=== PATIENT | male | born 1935 | race Caucasian/White ===

== ENCOUNTER 2018-08-07 18:36 | Inpatient (IN) | payer MEDICARE, OTHER ==
[2018-08-07 18:57] VITALS: BMI 20.9
[2018-08-07] MEDS ORDERED: Diabetic Tussin 200 MG/10 ML UDCUP PO PRN (22:21)
[2018-08-07] MEDS ORDERED: cloNIDine 0.1 MG TAB PO PRN (22:21)
[2018-08-07] MEDS ORDERED: hydrALAZINE 20 MG/ML VIAL SLOW IVP PRN (22:21)
[2018-08-07] MEDS ORDERED: Senokot S 8.6-50 MG TAB PO PRN ×2 (22:21)
[2018-08-07] MEDS ORDERED: Ondansetron PF 4 MG/2 ML Vial IVP PRN (22:21)
[2018-08-07] MEDS ORDERED: Bisacodyl 5 MG TAB PO PRN ×2 (22:21)
[2018-08-07] MEDS ORDERED: Nitroglycerin 0.4 MG TAB (25 Tab Bottle) SL PRN (22:21)
[2018-08-07] MEDS ORDERED: Benzonatate 100 MG CAP PO PRN (22:21)
[2018-08-07] MEDS ORDERED: Bisacodyl 10 MG SUPP PR PRN (22:21)
[2018-08-07] MEDS ORDERED: Acetaminophen 325 MG TAB PO PRN (22:21)
[2018-08-07] MEDS ORDERED: Calcium Carbonate 500 MG ChewTAB PO PRN (22:21)
[2018-08-07] MEDS ORDERED: HYDROcodone/Acetaminophen 10/325 mg Tablet PO PRN (22:25)
[2018-08-07] MEDS ORDERED: Cepastat Lozenges 1 LOZ PO PRN (22:25)
[2018-08-07] MEDS ORDERED: Dextrose 50% Abboject 50 ML SYRINGE SLOW IVP PRN (22:30)
[2018-08-07] MEDS ORDERED: HumaLOG 300 UNITS/3 ML VIAL SC PRN (22:30)
[2018-08-07] MEDS ORDERED: Dextrose 5% in Water 1,000 ML IV PRN (22:30)
[2018-08-07 23:30] LABS: Anisocytosis SLIGHT = 6-15 cells (100X) (0-5/hpf); Band 31 % (5-11); Lymphocytes 10 % (21-51); MDiff Complete? YES; Mean Corpuscular HGB CONC 34.7 g/dL (32.0-36.0); Mean Corpuscular Hemoglobin 36.9 pg (27.0-31.0); Monocytes 3 % (0-10); Neutrophil 56 % (42-75); PLT Morphology Comment Appears Decreased; Platelet Count 82 thou/uL (130-400); RBC Distribution Width 15.4 % (11.5-14.5); White Blood Cell (WBC) Count 5.4 thou/uL (4.8-10.8)
[2018-08-07 23:37] LABS: ALT (SGPT) 30 U/L (8-55); AST (SGOT) 29 U/L (5-34); Albumin 3.5 g/dL (3.4-4.8); Alkaline Phosphatase 90 U/L (40-150); Anion Gap 15 mmol/L (10-20); BUN (Urea Nitrogen) 18 mg/dL (8.4-25.7); Bilirubin, Total 0.8 mg/dL (0.2-1.2); Calc. Creatinine Clearance 48 mL/min (70-130); Calcium 9.2 mg/dL (7.8-10.44); Carbon Dioxide 23 mmol/L (23-31); Chloride 101 mmol/L (98-107); Estimated GFR-MDRD 66; Globulin 3.2 g/dL (2.4-3.5); Glucose 235 mg/dL (83-110); Potassium 4.5 mmol/L (3.5-5.1); Protein, Total 6.7 g/dL (5.8-8.1); Sodium 134 mmol/L (136-145)
[2018-08-08] MEDS: Sodium Chloride 0.9% 1,000 ML IV SCH ×2 (03:02→20:31)
[2018-08-08] MEDS: Vancomycin HCl 1.25 GM in Sodium Chloride 0.9% 250 ML 250 ML IVPB SCH (04:30)
--- NOTE | 2018-08-08 05:16 | HP ---
The patient was seen prior to midnight. PRIMARY CARE PHYSICIAN: Dr. David Nicolas. HISTORY OF PRESENTING ILLNESS: Mr. Man is an 83-year-old male, who was admitted as a direct admit from some outside emergency room, reportedly in [place], [place] for complaints of altered mental status and fever. History is mainly obtained by the patient's and daughter present in the room. Medical records sent over by [facility] are evaluated extensively. He was found to have high-grade bilateral carotid arterial stenosis and underwent carotid endarterectomy on the left side during his hospitalization in [facility]. After that, he was discharged home and did fairly well up until yesterday afternoon when he started to feel lethargic and started to have fever with chills. He had been complaining of sore throat to his . Other than that, denies any significant muscle weakness, but he was, in general, very weak. He did not have any nausea, vomiting, or diarrhea. He did not have any chest pain or shortness of breath or urinary frequency or urgency or dysuria. According to the family, Mr. Man was recently admitted in [facility] for complaints of sudden onset of lower extremity weakness and was diagnosed with having a TIA. He was discharged on aspirin after a thorough evaluation, reportedly an MRI done at that time was negative. He was brought into the emergency room in [place], [place], where he underwent blood work and chest x-ray. Upon evaluation of the ER records from [place], [place], he had a fever of 102.6 with a pulse of 113, respirations 22, and blood pressure 143/77 with oxygen saturation 93% on room air. The patient did have complaint of some wheezing as well as productive wet cough for the last day or two. CBC done at [facility] had a normal white blood cell count of 6.58. His platelet count was found to be low at 90 and influenza A and B were negative. Chest x-ray showed no acute disease, and his CMP was essentially unremarkable. He was given Xopenex and Atrovent nebulizer that did help a little bit and he was given Tylenol as well as normal saline. His cardiovascular surgeon, Dr. Prado, was contacted by the ER physician, who did the procedure 6 days ago, and Dr. Mazariegos also was consulted, who was somehow involved in his care in [place], [place]. Reportedly, they did not feel that his current symptoms were because of the surgery. Our hospital was contacted, and he was sent over here for further evaluation and higher level of care. I have also reviewed the results from his hospitalization in [place], [place]. An MRI of the brain without contrast done over there showed no acute infarct, only chronic small-vessel ischemic changes. He also had a CT angio done at [place], [place], which showed high-grade stenosis bilaterally. Upon my evaluation, it seems like the patient might have contracted health-care associated pneumonia with high-grade fever, cough, and wheezing. He will be admitted and treated for the same. PAST MEDICAL HISTORY: 1. History of recent TIA 1 week ago. 2. History of bilateral carotid arterial stenosis, status post left carotid endarterectomy 6 days ago. 3. Type 2 diabetes. 4. History of DVT, status post 6 months' treatment with Eliquis from August to February 2018. 5. History of epistaxis with Eliquis. 6. Peripheral arterial disease. PAST SURGICAL HISTORY: 1. Carotid endarterectomy 6 days ago. 2. Bilateral femoral artery stenting. ALLERGIES: NO KNOWN MEDICATION ALLERGIES. CURRENT MEDICATIONS: 1. Metformin 1000 mg daily. 2. Aspirin 81 mg daily. 3. Atorvastatin 40 mg daily. 4. Prilosec 20 mg daily. 5. [place] p.r.n. 6. Androgen patch 4 mg every 24 hours. SOCIAL HISTORY: He is and lives at home with his family. He is a barlow by profession. Has no history of drug, tobacco, or alcohol abuse. 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 He has no disability. FAMILY HISTORY: Mother had diabetes. Father had coronary artery disease and ME. CODE STATUS: Full code. Discussed with the patient and his . REVIEW OF SYSTEMS: It is limited at this time as the patient is somewhat lethargic. His biggest complaint at this time is generalized weakness. Otherwise, a 12-point review of systems is negative except for those mentioned in history and physical. LABORATORY EXAMINATION: Labs were repeated in our facility. It shows WBCs of 5.4 with 56% neutrophils and 31% bands, hemoglobin is 10 with hematocrit of 28.7, it is macrocytic in nature. Platelet count of 82. Serum chemistry showed sodium of 134, blood sugar 235. Troponin less than 0.010. Liver enzymes unremarkable. Total protein 6.7 with 3.5 of albumin. Urinalysis and chest x-ray are pending at this time, but the chest x-ray done in [place], [place] is negative for any infiltrate, but it was a suboptimal study as well. PHYSICAL EXAMINATION: VITAL SIGNS: Most recent vital signs; blood pressure 142/87, respirations 20, saturating 94% on room air, pulse 72, temperature 98.1. GENERAL: He is lethargic and somnolent, but in no acute distress. Audible wheezes are heard. He does have that rattling sound when he breathes in, otherwise in no acute distress. HEENT: Mucous membrane is slightly dry. No oropharyngeal exudate or erythema. Head is normocephalic, atraumatic. Pupils equal, reactive to light and accommodation. Extraocular movement intact. NECK: His surgical scar is well healing on the left carotid artery with mild swelling without any erythema or drainage. CHEST: Shows expiratory wheezes bilaterally, mainly in the upper lobes. Rate and rhythm is regular without any murmurs, rubs, or gallops. ABDOMEN: Soft, nontender, nondistended. Positive bowel sounds. EXTREMITIES: Free of any cyanosis, clubbing, or edema. NEUROLOGICAL: Nonfocal. SKIN: Free of any rashes or bruises. Feels warm and dry to touch. PSYCHIATRIC: Normal affect. IMPRESSION AND PLAN: 1. Sepsis: Given the fever and recent hospitalization and his cough, healthcare-associated pneumonia is suspected with sepsis. He has bandemia, fever, and tachycardia at the presenting emergency room. He will be started on gentle IV fluid hydration with broad-spectrum IV antibiotics, and we will obtain urine culture and blood culture, repeat chest x-ray in the morning as well. His symptoms have currently improved somewhat. He will be treated with cefepime and vancomycin. Antibiotics will be tailored according to the results of his cultures. I do not suspect any DVT at this time as his physical examination is not consistent with it. Despite his recent TIA, he has been fairly active in the house up until yesterday. 2. Altered mental status: This is likely secondary to #1. However, given his recent TIA and carotid arterial stenosis, we will obtain a CT of the brain in the morning. He will be admitted to stroke floor with frequent neuro checks, but he seems to be back at baseline for now except for some lethargy. Neurological examination is nonfocal. 3. Diabetes mellitus: We will start him on insulin sliding scale with frequent Accu-Cheks. 4. Thrombocytopenia: It is unclear if this is new or chronic for the patient. We will monitor closely. He is currently not on any anticoagulation. We will use SCDs for DVT prophylaxis and avoid any pharmacological DVT prophylaxis. 5. Microcytic anemia: Once again, it is unclear if this is acute or chronic. He seems to be stable without any acute bleed. We will recheck in the morning, and he will follow up in the outpatient setting if stable. 6. History of carotid artery stenosis, status post left carotid endarterectomy, currently stable. 7. Recent transient ischemic attack: Continue aspirin. For some reason, the patient is not on Plavix, despite given his history of peripheral arterial disease. We will defer this to his primary care physician. There is some noted history of epistaxis when he was on Eliquis. Continue Lipitor for now. 8. Code status: Full code, discussed with the patient. 9. PRN medications and continue supportive care. DISPOSITION: Mr. Man is currently being admitted to the hospital with sepsis, likely healthcare-associated pneumonia. Estimated length of stay at this time is at least 2 to 3 midnights. Further management will depend upon his clinical course. Job ID: [id number]
[2018-08-08 06:06] LABS: Anion Gap 13 mmol/L (10-20); BUN (Urea Nitrogen) 19 mg/dL (8.4-25.7); Calc. Creatinine Clearance 55 mL/min (70-130); Calcium 9.1 mg/dL (7.8-10.44); Carbon Dioxide 23 mmol/L (23-31); Chloride 102 mmol/L (98-107); Estimated GFR-MDRD 77; Glucose 222 mg/dL (83-110); Potassium 4.5 mmol/L (3.5-5.1); Sodium 133 mmol/L (136-145)
[2018-08-08] MEDS: HumaLOG 300 UNITS/3 ML VIAL SC PRN ×2 (06:35→18:14)
[2018-08-08 07:23] LABS: Hemoglobin 9.7 g/dL (14.0-18.0)
--- NOTE | 2018-08-08 08:50 | RAD ---
SINGLE VIEW CHEST: Date: 08/08/18 COMPARISON: None. HISTORY: Pneumonia. FINDINGS: Single view of the chest shows a normal sized cardiomediastinal silhouette. There is no evidence of c onsolidation, mass, or pleural effusion. Postsurgical change is seen in the left shoulder and distal right clavicle. IMPRESSION: No evidence of acute cardiopulmonary disease. POS: [facility]
[2018-08-08] MEDS ORDERED: Famotidine 20 MG TAB PO SCH (09:00)
[2018-08-08] MEDS ORDERED: Enoxaparin Sodium 40 MG/0.4 ML SYRINGE SC SCH (09:00)
[2018-08-08] MEDS ORDERED: Vancomycin HCl 1 GM in Premix Bag 1 BAG IVPB SCH (09:00)
[2018-08-08] MEDS ORDERED: Apixaban 5 MG TAB PO SCH (09:00)
[2018-08-08 09:03] LABS: Bilirubin Negative (Negative); Blood, Urine Negative (Negative); Clarity CLEAR (Clear); Glucose, Urine (Dipstick) >=1000 mg/dL (Negative); Leukocyte Negative (Negative); Nitrite Negative (Negative); Protein, Urine (Dipstick) Negative (Neg-Trace); Specific Gravity, Urine 1.024 (1.002-1.036)
[2018-08-08 09:06] LABS: Bacteria/HPF None Seen HPF (None Seen); Hyaline Casts/LPF 0-3 HYALINE CAST LPF (0-3 Hyaline); Pathc Cast-AUWi Flag 0.29 (0-2.49); Squamous Epithelial 0-3 HPF (0-3); WBC/HPF None Seen HPF (0-3)
[2018-08-08] MEDS: Atorvastatin Calcium 40 MG TAB PO SCH (10:01)
[2018-08-08] MEDS: guaiFENesin ER 600 MG TAB PO SCH ×2 (10:01→20:29)
--- NOTE | 2018-08-08 10:18 | CT ---
CT BRAIN NONCONTRAST: HISTORY: 83-year-old male with altered mental status and confusion. Seizures. FINDINGS: There is no midline shift or any other mass effect. There is no evidence of acute intracranial hemor rhage, obstructive hydrocephalus, or extraaxial fluid collection. The calvarium is intact. There is diffuse parenchymal volume loss. There are low attenuation areas in the white matter. These are no nspecific, but in a patient of this age, they are probably chronic ischemic white matter changes due to microvascular atherosclerosis. Small to moderate sized region of encephalomalacia and gliosis at t he lateral aspect of the right parietal lobe. Small region of encephalomalacia and gliosis at inferol ateral aspect right frontal lobe. Very small focus of encephalomalacia and gliosis involving right po st central gyrus near vertex. IMPRESSION: 1) No acute intracranial findings. 2) Involutional changes and chronic ischemic white matter changes. 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 nando POS: [facility]
--- NOTE | 2018-08-08 14:16 | PRG ---
DATE OF SERVICE: 08/08/2018 SUBJECTIVE: The patient is seen and examined at bedside. He feels somewhat better. He still coughs quite a bit and he makes some yellowish phlegm. OBJECTIVE: VITAL SIGNS: Blood pressure is 103/61, pulse is 70, temperature is 98.2, maximal temperature is 98.9, respiratory rate is 16, and O2 saturation is 93% on room air. HEENT: Head, atraumatic and normocephalic. Eyes are PERRLA. Sclerae are nonicteric. Oral mucosa is moist. NECK: Supple. No lymphadenopathy. LUNGS: Breath sounds somewhat diminished at the right base. No wheezing. No rales. HEART: S1 and S2 normal. No S3. No S4. ABDOMEN: Soft, nontender, and nondistended. Bowel sounds are present. No organomegaly. EXTREMITIES: No clubbing, cyanosis, or edema. His feet are cold and pulses diminished on both tibialis posterior and dorsalis pedis arteries similar bilaterally. NEUROLOGIC: He is alert and oriented x4. There is no any motor or sensory deficit present. Cranial nerves are intact. LABORATORY DATA: Hemoglobin of 9.7 and hematocrit 28.3. Chemistry; sodium of 133, potassium 4.5, chloride 102, CO2 of 23, BUN 19, creatinine 0.94, glucose 222, and calcium 9.1. Urinalysis showed more than a 1000 of glucose, trace of ketones, and the rest of UA is within normal limits. DIAGNOSTIC DATA: The chest x-ray was done, which did not really show any infiltrates. Blood cultures are negative so far. IMPRESSION: 1. Altered mental status, resolved. 2. Possible sepsis, although blood cultures came back preliminarily negative. We will check his CBC this morning, we will check for bands. He had a lot of bands yesterday. He had fever yesterday. Today, he does not have any fever, basically maybe just low-grade, and for now, we will continue both broad-spectrum antibiotics and we will wait until we have full cultures reports back before we start trimming antibiotic regimen. 3. Diabetes mellitus, not well controlled at this point. We will make some adjustments to get his blood pressure down below 150s. 4. Thrombocytopenia, most likely chronic good indication for that in the acute setting. 5. Microcytic anemia. It is unclear whether it is acute or chronic. 6. History of carotid artery stenosis, status post left carotid endarterectomy recently. 7. Recent transient ischemic attack. PLAN: Plan is to continue broad-spectrum antibiotics, do sputum Gram stain and culture. Start back him on his metformin 1000 mg twice a day and do the labs tomorrow morning. We will have PT to work with him since he is in and out from the hospital for the last several days and that affects his functional status. Job ID: [id number]
[2018-08-08] MEDS ORDERED: metFORMIN 500 MG TAB PO SCH (17:00)
[2018-08-08] MEDS: Testosterone 1% 5 GM PK TOP SCH (18:03)
[2018-08-09] MEDS: Vancomycin HCl 1.25 GM in Sodium Chloride 0.9% 250 ML 250 ML IVPB SCH (04:11)
[2018-08-09] MEDS: Sodium Chloride 0.9% 1,000 ML IV SCH (06:43)
[2018-08-09] MEDS: metFORMIN 500 MG TAB PO SCH (09:59)
[2018-08-09] MEDS: guaiFENesin ER 600 MG TAB PO SCH ×2 (10:00→20:55)
[2018-08-09] MEDS: Atorvastatin Calcium 40 MG TAB PO SCH (10:00)
[2018-08-09] MEDS: Testosterone 1% 5 GM PK TOP SCH (10:02)
[2018-08-09 11:35] LABS: Hemoglobin 10.2 g/dL (14.0-18.0); Mean Corpuscular HGB CONC 32.8 g/dL (32.0-36.0); Mean Corpuscular Hemoglobin 34.9 pg (27.0-31.0); Platelet Count 95 thou/uL (130-400); RBC Distribution Width 15.2 % (11.5-14.5); Red Blood Cell (RBC) Count 2.93 mill/uL (4.70-6.10); White Blood Cell (WBC) Count 4.3 thou/uL (4.8-10.8)
[2018-08-09 11:53] LABS: Anion Gap 15 mmol/L (10-20); BUN (Urea Nitrogen) 28 mg/dL (8.4-25.7); Calc. Creatinine Clearance 52 mL/min (70-130); Calcium 9.1 mg/dL (7.8-10.44); Carbon Dioxide 21 mmol/L (23-31); Chloride 102 mmol/L (98-107); Estimated GFR-MDRD 73; Glucose 132 mg/dL (83-110); Potassium 3.6 mmol/L (3.5-5.1); Sodium 134 mmol/L (136-145)
[2018-08-09 12:14] LABS: Band 4 % (5-11); Eosinophils 1 % (0-10); Lymphocytes 48 % (21-51); MDiff Complete? YES; Macrocytosis SLIGHT = 6-15 cells (100X) (0-5/hpf); Monocytes 3 % (0-10); Neutrophil 42 % (42-75); Nucleated RBC 1 % (0); PLT Morphology Comment Appears Decreased; Polychromasia SLIGHT = 2-3 cells (100X) (0-2/hpf); Reactive Lymphocytes 1 % (0-10)
--- NOTE | 2018-08-09 17:32 | PRG ---
DATE OF SERVICE: 08/09/2018 SUBJECTIVE: The patient is seen and examined at bedside. He feels better after we gave him some breathing treatments this morning when he started having more shortness of breath and more wheezing. Now, he feels significantly better. OBJECTIVE: VITAL SIGNS: Blood pressure is 109/64, pulse is 84, respiratory rate is 22, temperature is 97.8, and O2 saturation is 96% on room air. HEENT: His head is atraumatic, normocephalic. Eyes are PERRLA. Sclerae are nonicteric. Oral mucosa is moist. NECK: Supple. LUNGS: Bilateral rales, mild to moderate at both bases. HEART: S1 and S2, somewhat irregular. No S3, no S4. ABDOMEN: Soft, nontender, nondistended. EXTREMITIES: No clubbing, cyanosis, or edema. NEUROLOGICAL: He is alert and oriented x4. There is no any motor or sensory deficit present. Cranial nerves are intact. LABORATORY DATA: Labs showed white count of 4.3, hemoglobin 10.2, hematocrit 31.2, platelet count is 95,000, bands 4. Sodium of 134, potassium 3.6, chloride 102, CO2 is 21, BUN 28, creatinine 0.98, glycemia is ranging from 113 to 212. Cultures; 2 blood cultures are negative. Urine culture, negative. Sputum Gram stain; 0-5 epithelial cells, moderate WBCs seen, many gram-positive cocci in pairs and chains and clusters, many gram-variable rods, moderate gram-negative rods. Culture results [id number] respiratory kassi present. IMPRESSION: 1. Altered mental status, resolved. 2. Acute bronchitis. We do not have any evidence that he has pneumonia at this point. 3. Cultures came back negative, so this makes the diagnosis of sepsis kind of unlikely at this point. 4. Thrombocytopenia, improving. 5. Microcytic anemia. We will obtain folic acid level and vitamin B12 levels since MCV is elevated. 6. History of carotid artery stenosis bilaterally and status post left carotid endarterectomy recently done. 7. Transient ischemic attack recently and some positive findings of possible previous CVAs. PLAN: I am going to stop his vancomycin and Levaquin, switch him to Omnicef since all cultures came back negative and his clinical condition improved. He was treated aggressively for possible nosocomial pneumonia, but this is of very unlikely at this point, he is presenting more acute bronchitis type of picture. He has participated with physical therapy. They recommend him to do PT with Home Health agency help. He should be able to ready to go home tomorrow with Home Health. I will continue his DuoNeb for now. Job ID: [id number]
[2018-08-09] MEDS: Cefdinir 300 MG CAP PO SCH (20:55)
[2018-08-10 02:51] LABS: Vancomycin, Trough 10.7 ug/mL
[2018-08-10] MEDS: Cefdinir 300 MG CAP PO SCH (08:35)
[2018-08-10] MEDS: metFORMIN 500 MG TAB PO SCH (08:35)
[2018-08-10] MEDS: Atorvastatin Calcium 40 MG TAB PO SCH (08:35)
[2018-08-10] MEDS: guaiFENesin ER 600 MG TAB PO SCH (08:35)
[2018-08-10] MEDS: Testosterone 1% 5 GM PK TOP SCH (08:36)
[2018-08-10] MEDS: HumaLOG 300 UNITS/3 ML VIAL SC PRN (11:14)
[2018-08-10 11:41] VITALS: BP 93/56; TEMP 98.3
--- NOTE | 2018-08-10 13:31 | DIS ---
DATE OF ADMISSION: 08/07/2018 DATE OF DISCHARGE: 08/10/2018 DIAGNOSES AT THE TIME OF DISCHARGE: 1. Altered mental status, resolved. 2. Acute bronchitis, pneumonia was ruled out. 3. Thrombocytopenia, improving. 4. Macrocytic anemia with normal B12 and folic acid levels. 5. History of carotid artery stenosis bilaterally and status post left carotid endarterectomy recently done. 6. Transient ischemic attack with some positive findings of possible previous cerebrovascular accidents. HOSPITAL COURSE: The patient is an 83-year-old male, who was admitted directly from [facility] in [place] with altered mental status and fever. Apparently, he was admitted originally to [place], [place] with symptoms of TIA and was found to have bilateral carotid artery stenosis and then subsequently he underwent carotid endarterectomy on the left side. Then, he was discharged home, is fairly well until 2 days prior to this admission when he started having some fever and chills and became lethargic. He was complaining about some sore throat and weakness. He did not have any nausea, vomiting, or diarrhea. He did not have any chest pain or shortness of breath, but the family stated that he had sudden onset of lower extremity weakness. His temperature in the emergency room in [place], [place] was 102.6, pulse was 113, respirations 22, and he was saturating 93% on room air. He had wheezing and productive wet cough for a couple of days prior to this visit. His CBC; WBC at this time was 6.5 and platelet count was 90. Influenza A and B were negative and chest x-ray showed no acute disease. Our hospital was contacted and after arrangement, the patient was sent over for higher level of care. Apparently, MRI of the brain was done while he was in [facility] and it did not show any acute infarct, only chronic small-vessel ischemic changes. Also CT angiogram was done, which showed high-grade stenosis bilaterally. The patient got admitted to our hospital with the working diagnosis of sepsis and possible healthcare-associated pneumonia. He was placed on broad-spectrum antibiotics and cultures were obtained. His altered mental status improved. He was back to his baseline except for some lethargy at the time of admission to our hospital. The patient did very well during this hospitalization. His chest x-ray did not show any pneumonia. His altered mental status cleared. The brain CT showed possible right cerebral hemisphere old infarctions, but we know that his MRI was negative for those findings. Also, he had some involutional changes and chronic ischemic white matter changes on his recent CT of the brain. He was treated with DuoNeb. He was treated with broad-spectrum antibiotics. His blood cultures and urine culture came back negative. His sputum came back growing just a regular respiratory kassi. He was treated with PT and today he is feeling much better. PHYSICAL EXAMINATION: VITAL SIGNS: His blood pressure is 117/74, pulse is 87, respirations 16, O2 saturation is 96. He was seen and examined before his discharge. LUNGS: Almost clear with few crackles at both bases. No wheezing. HEART: S1 and S2 normal. No S3. No S4. ABDOMEN: Soft and nontender. Bowel sounds are present. No organomegaly. He is discharged home. Apparently, he is going to stay locally with one of the family members, and then he is going to be transferred to his home and we are going to start Home Health visits and Physical Therapy when he is here and that this is going to be transferred to the same services of the same company in his hometown. MEDICATIONS AT THE TIME OF DISCHARGE: 1. Cefdinir 300 mg twice a day for 6 days. 2. DuoNeb twice a day p.r.n., x10 days. 3. Guaifenesin 600 mg twice a day for 10 days along with metformin 1000 mg once a day. 4. Testosterone Androderm topical patch. 5. Vitamin D3 of 2000 units once a day. 6. Omeprazole 20 mg once a day. 7. Hydrocodone 10/325 one tablet every 6 hours p.r.n. as needed. 8. Aspirin 81 mg once a day. 9. Atorvastatin 40 mg once a day. FOLLOWUP: He is going to follow up with Dr. Nicolas in one week. Job ID: [id number]
== END 2018-08-10 12:58 | disposition home health service (06) | DRG 203 ==
LOC: T4-B 18:36 → 2SE 22:45
PROVIDERS: ADMIT Family Medicine; ATTEND Family Medicine
DX: J20.9 Acute bronchitis, unspecified (principal); Y95 Nosocomial condition; Z86.73 Personal history of transient ischemic attack (TIA), and cerebral infarction without residual deficits; E11.9 Type 2 diabetes mellitus without complications; Z86.718 Personal history of other venous thrombosis and embolism; I73.9 Peripheral vascular disease, unspecified; D69.6 Thrombocytopenia, unspecified; D64.9 Anemia, unspecified; Z79.899 Other long term (current) drug therapy; Z79.84 Long term (current) use of oral hypoglycemic drugs; Z79.82 Long term (current) use of aspirin; Z79.891 Long term (current) use of opiate analgesic
CPT/HCPCS: 36415; 36416; 70450; 71045; 80048; 80053; 80202; 81001; 84484; 85014; 85018; 85025; 87040; 87070; 87086; 87205; 94640; G8978-GP-CJ; G8979-GP-CJ; G8980-GP-CJ; G8987-GO-CI; G8988-GO-CI; G8989-GO-CI; J1956; J3370; J7050; J7620

== ENCOUNTER 2018-10-30 09:39 | Observation (INO) | payer MEDICARE ==
[2018-10-30 10:38] LABS: ALT (SGPT) 11 U/L (8-55); AST (SGOT) 14 U/L (5-34); Albumin 3.9 g/dL (3.4-4.8); Alkaline Phosphatase 111 U/L (40-150); Anion Gap 14 mmol/L (10-20); BUN (Urea Nitrogen) 17 mg/dL (8.4-25.7); Bilirubin, Total 0.7 mg/dL (0.2-1.2); Calc. Creatinine Clearance 0 mL/min (70-130); Calcium 9.6 mg/dL (7.8-10.44); Carbon Dioxide 23 mmol/L (23-31); Chloride 101 mmol/L (98-107); Estimated GFR-MDRD 71; Globulin 3.1 g/dL (2.4-3.5); Glucose 158 mg/dL (83-110); Lipase 34 U/L (8-78); Potassium 4.2 mmol/L (3.5-5.1); Sodium 134 mmol/L (136-145)
[2018-10-30] MEDS ORDERED: ISOVUE-370 76%-LOCM 1 ML ONE (10:57)
[2018-10-30 11:15] LABS: INR-International Normal Ratio 1.2; Prothrombin Time 15.2 SEC (12.0-14.7)
[2018-10-30 11:16] LABS: PTT 38.2 SEC (22.9-36.1)
[2018-10-30 11:19] LABS: Band 1 % (5-11); Hemoglobin 9.5 g/dL (14.0-18.0); Lymphocytes 58 % (21-51); MDiff Complete? YES; Macrocytosis MODERATE=16-30 cells (100X) (0-5/hpf); Mean Corpuscular HGB CONC 33.6 g/dL (32.0-36.0); Mean Corpuscular Hemoglobin 37.4 pg (27.0-31.0); Mean Platelet Volume 10.2 fL (7.4-10.4); Monocytes 18 % (0-10); Neutrophil 17 % (42-75); Ovalocytes MODERATE= 6-15 cells (100X) (0-1/hpf); Platelet Count 70 thou/uL (130-400); Polychromasia SLIGHT = 2-3 cells (100X) (0-2/hpf); RBC Distribution Width 18.4 % (11.5-14.5); Reactive Lymphocytes 3 % (0-10); Red Blood Cell (RBC) Count 2.54 mill/uL (4.70-6.10); Tear Drops SLIGHT = 2-5 cells (100X) (0-1/hpf); White Blood Cell (WBC) Count 2.7 thou/uL (4.8-10.8)
--- NOTE | 2018-10-30 11:55 | RAD ---
PORTABLE AP CHEST: Date: 10/30/18 HISTORY: Dyspnea. COMPARISON: 08/08/18. FINDINGS: The cardiac silhouette and pulmonary vasculature are within normal limits. The lungs remain clear. Th ere are stable postoperative changes related to left glenohumeral prosthesis. 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 Vascular calcifications seen thoracic aorta. Degenerative changes no jennifer in the spine. There is osteopenia. IMPRESSION: Stable chest without evidence of an acute cardiopulmonary process. POS: [facility]
--- NOTE | 2018-10-30 12:17 | CT ---
CT ABDOMEN AND PELVIS WITH CONTRAST: Date: 10/30/18 HISTORY: Abdominal pain and weakness. COMPARISON: None. FINDINGS: Lung bases are clear. No pericardial effusion. The celiac trunk and superior mesenteric arteries are patent. There is a focal saccular aneurysm of t he infrarenal abdominal aorta with the aorta measuring up to 2.5 cm at this location. This occurs for a craniocaudad length of 2.3 cm. Bilateral iliac vein stents are present, which are patent. There is a bladder-containing left-sided d irect inguinal hernia. No dilated loops of large or small bowel. The appendix is felt to be visualize d and is normal. There is a relatively recent-appearing midline incisional scar of ventral abdomen. 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 The liver, gall bladder, and spleen are unremarkable. Pancreas unremarkable. Adrenal glands unremarkable. No retroper itoneal adenopathy. IMPRESSION: 1. Urinary bladder-containing left-sided direct inguinal hernia. Urologic consultation advised. No s ignificant stranding to suggest inflammation. 2. Bilateral common iliac vein stents. 3. Infrarenal abdominal saccular aneurysm for which the abdominal aorta at this level measures 2.5 c m for a craniocaudad length of 23 mm. 4. Patent superior mesenteric artery and celiac trunk, as well as inferior mesenteric artery. POS: [facility]
[2018-10-30 13:06] LABS: Bilirubin Negative (Negative); Blood, Urine Negative (Negative); Clarity CLEAR (Clear); Glucose, Urine (Dipstick) Negative (Negative); Leukocyte Negative (Negative); Nitrite Negative (Negative); Protein, Urine (Dipstick) Negative (Neg-Trace); Specific Gravity, Urine 1.045 (1.002-1.036); pH, Urine 6.5 (5.0-9.0)
[2018-10-30 14:40] LABS: Lactic Acid 1.8 mmol/L (0.5-2.2)
[2018-10-30 20:38] VITALS: BMI 19.3
[2018-10-30] MEDS ORDERED: Atorvastatin Calcium 40 MG TAB PO SCH (21:45)
[2018-10-30] MEDS ORDERED: Aspirin Chewable 81 MG TAB PO SCH (21:45)
[2018-10-30] MEDS: HYDROcodone/Acetaminophen 10/325 mg Tablet PO PRN (22:06)
[2018-10-30] MEDS ORDERED: Acetaminophen 325 MG TAB PO PRN (22:26)
[2018-10-31] MEDS ORDERED: Dextrose 50% Abboject 50 ML SYRINGE SLOW IVP PRN (04:22)
[2018-10-31] MEDS ORDERED: Dextrose 5% in Water 1,000 ML IV PRN (04:22)
[2018-10-31 05:19] LABS: Anion Gap 12 mmol/L (10-20); BUN (Urea Nitrogen) 18 mg/dL (8.4-25.7); Calc. Creatinine Clearance 53 mL/min (70-130); Calcium 9.1 mg/dL (7.8-10.44); Carbon Dioxide 24 mmol/L (23-31); Chloride 103 mmol/L (98-107); Estimated GFR-MDRD 82; Glucose 115 mg/dL (83-110); Potassium 4.3 mmol/L (3.5-5.1); Sodium 135 mmol/L (136-145)
--- NOTE | 2018-10-31 05:32 | HP ---
PRIMARY CARE DOCTOR: David Nicolas MD CODE STATUS: Full code. TIME OF EVALUATION: 9:25 p.m. CHIEF COMPLAINT: Weakness. HISTORY OF PRESENT ILLNESS: This is an 83-year-old male patient, past medical history of diabetes, ischemia, pancytopenia, thrombocytopenia, came to the hospital after having generalized weakness that was severe with no clear triggers, no alleviating factors. As per report, the patient has been getting gradually worse. The symptoms started insidiously. The patient reported also some associated lack of appetite and his symptoms are also associated with shortness of breath. REVIEW OF SYSTEMS: CONSTITUTIONAL: No fever or chills. The patient reported severe generalized weakness. RESPIRATORY: No cough or sputum production. The patient does report shortness of breath with exertion. CARDIOVASCULAR: No chest pain or palpitation. GASTROINTESTINAL: No nausea, no vomiting, diarrhea, or abdominal pain. STITCH WHEELER: No dizziness, headache, or feeling lightheaded. GENITOURINARY: No burning on urination. EXTREMITIES: No leg swelling. All other systems were reviewed and negative except for the findings mentioned above. PAST MEDICAL HISTORY: As mentioned in the HPI. PAST SURGICAL HISTORY: The patient has an exploratory lap, orthopedic surgery of the left shoulder. PSYCH HISTORY: No previous psych history. SOCIAL HISTORY: No drugs, no alcohol, no smoking history. FAMILY HISTORY: Reviewed and noncontributory to current presentation. KNOWN ALLERGIES: No known drug allergies. REPORTED MEDICATIONS: Unable to obtain. PHYSICAL EXAMINATION: VITAL SIGNS: On presentation, blood pressure 110/66, heart rate 89, respiratory rate was 14, temperature 97.5. Pain was 6/10 oxygen saturation was 100 on room air. GENERAL APPEARANCE: The patient is alert, oriented, not in acute distress. HEENT: Eyes, normal conjunctivae. Moist oral mucosa. Anicteric. No JVD. RESPIRATORY: Bilateral air entry. No rales. No wheezes. Symmetric expansion. CARDIOVASCULAR: Normal rate, regular rhythm. No murmurs. No gallop. No edema. ABDOMEN: Soft, normal bowel sounds. MUSCULOSKELETAL: Baseline range of motion and strength. No tenderness. SKIN: Warm, intact. No pallor. No rash. No redness. Peripheral pulses are present. Capillary refill seems to be intact. NEURO: No evidence of any new focal weakness. Baseline speech. Cranial nerves seem to be intact. PSYCH: The patient is in good mood. No anxiety. Optimal judgment. IMAGING: EKG was reviewed. The patient has normal sinus rhythm with a rate of 94 with AK 168, QRS 88, QT corrected 452. Abdomen and pelvis CT with contrast was done at 10:00 a.m. The patient has urinary bladder containing left-sided direct inguinal hernia. Urology consultation advised. No significant stranding to suggest inflammation. Bilateral common iliac vein stents. Infrarenal abdominal saccular aneurysm, the abdominal aorta at this level measures 2.5 cm for a craniocaudal length of 23 mm, the patient's superior mesenteric artery and celiac trunk as well as inferior mesenteric artery. LABORATORY DATA: Reviewed. White count 2.7, hemoglobin 9.5, MCV 111, platelet count 70. Coagulation PT 15.2, INR 1.2, PTT 38.2. D-dimer 1.16. Chemistry; sodium 136, potassium 4.2, chloride 101, carbon dioxide 23, anion gap 14, BUN 17, creatinine 1.0, GFR 71, glucose 158, lactic acid 2.2, calcium 9.6, total bilirubin 0.7. Rest of LFTs were negative. Beta-natriuretic peptide 116. Troponin was negative x3. Urine was done and was negative. ASSESSMENT AND PLAN: The patient will be placed in the hospital with following medical problems: 1. Shortness of breath of unclear etiology. The patient has positive D-dimer. The patient needs CT angio to rule out pulmonary embolism. The patient had contrast yesterday and for that reason, we will wait till 10:00 a.m. to do the next CT angio. We will need to follow and treat accordingly. 2. Pancytopenia. This is a chronic problem for the patient, we will monitor blood count, we will treat accordingly. No need for any acute intervention at this point. 3. Positive D-dimer, pulmonary embolism to be ruled out as mentioned above. 4. Hyponatremia with sodium 134, this is minimal, no need for any acute intervention at this point. 5. Hyperglycemia due to uncontrolled diabetes, blood sugar 158. We will place the patient on sliding scale for optimal control. Reconcile home medications. Low carb diet. 6. Recent surgery, wound seems to be healing well, seems to have laparotomy for ischemia. 7. Inguinal direct hernia, now complicated. This could be followed as outpatient. 8. Deep venous thrombosis prophylaxis. Job ID: [id number]
[2018-10-31 05:35] LABS: Band 5 % (5-11); Elliptocytes SLIGHT = 2-5 cells (100X) (0-1/hpf); Eosinophils 1 % (0-10); Hemoglobin 8.2 g/dL (14.0-18.0); Lymphocytes 56 % (21-51); MDiff Complete? YES; Macrocytosis SLIGHT = 6-15 cells (100X) (0-5/hpf); Mean Corpuscular HGB CONC 34.5 g/dL (32.0-36.0); Mean Corpuscular Hemoglobin 38.1 pg (27.0-31.0); Mean Platelet Volume 10.6 fL (7.4-10.4); Monocytes 15 % (0-10); Neutrophil 23 % (42-75); Nucleated RBC 1 % (0); Platelet Count 56 thou/uL (130-400); Platelet Morphology Comment Appears Decreased; RBC Distribution Width 18.7 % (11.5-14.5); Red Blood Cell (RBC) Count 2.14 mill/uL (4.70-6.10); Tear Drops SLIGHT = 2-5 cells (100X) (0-1/hpf); White Blood Cell (WBC) Count 3.2 thou/uL (4.8-10.8)
--- NOTE | 2018-10-31 08:45 | CT ---
CT ANGIOGRAM OF THE CHEST WITH CONTRAST: HISTORY: Chest pain. COMPARISON: Chest radiograph prior day. FINDINGS: CT angiogram of the chest was performed after the intravenous administration of contrast. Three-D re ndering was provided. No proximal segmental pulmonary arterial filling defect. There is reflux of contrast within the supr ahepatic IVC, infrahepatic IVC, and hepatic veins. The thoracic aorta is without aneurysmal dilatation. No significant pericardial effusion. No mediastinal adenopathy. Bones are osteopenic. No acute displaced rib fracture. Left shoulder arthroplasty is in place. IMPRESSION: 1. No proximal segmental pulmonary arterial filling defect. 2. No acute inflammatory process within the chest. 3. Reflux of contrast within the suprahepatic and infrahepatic inferior vena cava as well as the hep atic veins suggesting diastolic dysfunction. POS: JANISH
[2018-10-31] MEDS: Enoxaparin Sodium 40 MG/0.4 ML SYRINGE SC SCH (09:55)
[2018-10-31] MEDS ORDERED: ISOVUE-370 76%-LOCM 1 ML ONE (09:59)
[2018-10-31] MEDS: HumaLOG 300 UNITS/3 ML VIAL SC PRN ×2 (12:26→17:27)
[2018-10-31] MEDS ORDERED: Sodium Chloride 0.9% 500 ML IVPB SCH (16:15)
--- NOTE | 2018-10-31 16:56 | PDOC.PN ---
- Subjective Encounter Start Date: 10/31/18 Encounter Start Time: 16:54 Patient lying in bed, continues to have weakness, denies chest pain, shortness of breath or abdominal pain. Orthos + - Objective Resuscitation Status - Order Detail: 10/30/18 22:26 Resuscitation Status Routine Resuscitation Status: FULL: Full Resuscitation MAR Reviewed: Yes Vital Signs & Weight: Vital Signs (12 hours) Temp Pulse Resp BP BP BP BP 10/31/18 15:15 98.5 F 104 H 24 H 86/52 L 91/61 10/31/18 11:10 97 97/55 L 10/31/18 10:50 98.8 F 97 18 92/54 L 10/31/18 07:47 98.3 F 92 16 107/59 L 10/31/18 05:59 93 100/55 L 10/31/18 04:58 98.5 F 98 16 91/61 BP Pulse Ox 10/31/18 15:15 101/61 97 10/31/18 11:10 10/31/18 10:50 96 10/31/18 07:47 96 10/31/18 05:59 10/31/18 04:58 97 Weight Admit Weight 127 lb 3.2 oz Weight 127 lb 3.2 oz I&O: 10/30/18 10/31/18 11/01/18 06:59 06:59 06:59 Intake Total 720 Balance 720 Result Diagrams: 10/31/18 04:28 10/31/18 04:28 Additional Labs: Accuchecks 10/31/18 10/31/18 10/30/18 11:11 05:03 20:25 POC Glucose 221 H 132 H 170 H Radiology Reviewed by me: Yes Phys Exam - Physical Examination Constitutional: NAD HEENT: PERRLA, moist MMs Neck: no nodes, no JVD Respiratory: no wheezing, clear to auscultation bilateral Cardiovascular: RRR, no significant murmur Gastrointestinal: soft, non-tender, positive bowel sounds Musculoskeletal: pulses present Neurological: normal sensation, moves all 4 limbs Lymphatic: no nodes Psychiatric: normal affect Skin: no rash, cap refill <2 seconds Dx/Plan (1) Diabetes mellitus Code(s): E11.9 - TYPE 2 DIABETES MELLITUS WITHOUT COMPLICATIONS Status: Acute (2) Orthostatic hypotension Code(s): I95.1 - ORTHOSTATIC HYPOTENSION Status: Acute (3) Pancytopenia Code(s): D61.818 - OTHER PANCYTOPENIA Status: Acute (4) Thrombocytopenia Code(s): D69.6 - THROMBOCYTOPENIA, UNSPECIFIED Status: Acute - Plan cont current plan of care, PT/OT, DVT proph w/lovenox * Continue sliding scale with accuchecks * PT/OT ordered * orthostatic BPs +, gave 500ml bolus, monitor vitals * Continue other home medications * CTA negative for PE
[2018-10-31] MEDS: HYDROcodone/Acetaminophen 10/325 mg Tablet PO PRN (20:04)
[2018-10-31] MEDS ORDERED: Aspirin Chewable 81 MG TAB PO SCH (21:00)
[2018-10-31] MEDS ORDERED: Atorvastatin Calcium 40 MG TAB PO SCH (21:00)
--- NOTE | 2018-11-01 11:56 | PDOC.PN ---
- Subjective Encounter Start Date: 11/01/18 Encounter Start Time: 11:54 Subjective: still weak, dizzy on arising - Objective Resuscitation Status - Order Detail: 10/30/18 22:26 Resuscitation Status Routine Resuscitation Status: FULL: Full Resuscitation MAR Reviewed: Yes Vital Signs & Weight: Vital Signs (12 hours) Temp Pulse Resp BP BP Pulse Ox 11/01/18 08:00 98.6 F 84 18 94/51 L 97 11/01/18 03:47 98.5 F 90 16 96/57 L 97 Weight Admit Weight 127 lb 3.2 oz Weight 127 lb 3.2 oz I&O: 10/31/18 11/01/18 11/02/18 06:59 06:59 06:59 Intake Total 1340 Balance 1340 Result Diagrams: 10/31/18 04:28 10/31/18 04:28 Additional Labs: Accuchecks 11/01/18 10/31/18 10/31/18 03:53 21:12 17:11 POC Glucose 133 H 132 H 199 H Phys Exam - Physical Examination Neck: no JVD Respiratory: clear to auscultation bilateral Cardiovascular: RRR, no significant murmur Gastrointestinal: soft, positive bowel sounds midline abd healing incision Musculoskeletal: no edema Dx/Plan (1) Diabetes mellitus Code(s): E11.9 - TYPE 2 DIABETES MELLITUS WITHOUT COMPLICATIONS Status: Acute Qualifiers: Diabetes mellitus type: type 2 Diabetes mellitus exterminator insulin use: without intermediate use Diabetes mellitus complication status: without complication Qualified Code(s): E11.9 - Type 2 diabetes mellitus without complications (2) Orthostatic hypotension Code(s): I95.1 - ORTHOSTATIC HYPOTENSION Status: Acute (3) Pancytopenia Code(s): D61.818 - OTHER PANCYTOPENIA Status: Chronic (4) Dyslipidemia Code(s): E78.5 - HYPERLIPIDEMIA, UNSPECIFIED Status: Acute (5) Weakness Code(s): R53.1 - WEAKNESS Status: Acute - Plan im b-12, 1 unit prbc -: alvin appt for bone marrow bx in [place] early next weak -: cautioned on arising rapidly, no obvious etiology for orthostasis exc Dm * .
[2018-11-01] MEDS ORDERED: Cyanocobalamin 1000 MCG/ML VIAL IM SCH (12:00)
[2018-11-01] MEDS: Enoxaparin Sodium 40 MG/0.4 ML SYRINGE SC SCH (12:35)
[2018-11-01] MEDS: HumaLOG 300 UNITS/3 ML VIAL SC PRN (14:43)
[2018-11-01] MEDS: HYDROcodone/Acetaminophen 10/325 mg Tablet PO PRN (15:40)
[2018-11-01 17:23] VITALS: BP 117/67; TEMP 98.4
[2018-11-01 18:10] LABS: Platelet Count 53 thou/uL (130-400)
--- NOTE | 2018-11-02 07:25 | DIS ---
DATE OF ADMISSION: 10/30/2018 DATE OF DISCHARGE: 11/01/2018 PRIMARY CARE PHYSICIAN: Listed locally, David Nicolas MD. The patient also has a physician in [place], [place]. FINAL DIAGNOSES: Symptomatic anemia, pancytopenia, generalized weakness, diabetes mellitus type 2, dyslipidemia, and orthostatic hypotension. DISCHARGE MEDICATIONS: The patient is being discharged on his home medicines, which include, 1. Lipitor 40 mg a day. 2. Aspirin 81 mg a day. 3. Hydrocodone 10/325 one every 6 hours p.r.n. 4. Testosterone 4 mg daily transdermal. 5. Omeprazole 20 mg a day. 6. Metformin 500 mg a day. ALLERGIES: NO KNOWN DRUG ALLERGIES. PENDING AT TIME OF DISCHARGE: Nothing. CODE STATUS: Full. HOSPITAL COURSE: The patient admitted to the [facility] on 10/31/2018 with generalized weakness. The patient has had an abdominal exploration 2 weeks ago, which failed to reveal any abnormality. Abdominal and pelvis CT was done. He has left-sided inguinal hernia and internal abdominal aneurysm 2.5 cm for length of 23 mm. Laboratory revealed white count of 2.7, hemoglobin 9.5, and platelet count of 70. The patient also had a CTA of the thorax to rule out pulmonary emboli, which was negative for pulmonary emboli. His followup laboratory revealed a hemoglobin of 8.2, white cell count of 3.2, and platelet count 56,000. In discussion with the patient and the family, his anemia, pancytopenia, and plan for bone marrow on Tuesday in [place] were discussed. He has had orthostatic blood pressure drop here. Typical numbers were 113/66 supine, 98/53 sitting, and incredibly enough 111/59 standing. Another one was 101/61 supine, 86/52 sitting, and 91/61 standing. He was dizzy with those. During his hospital stay, his blood sugars were followed. They stayed in the 1 to 200 range. No consultations were done. In consultation with the family, I have elected to transfuse him with 1 unit of packed cells. He will travel back to [place] and follow up with his [place] doctors on Tuesday. Cardiac enzymes done x3 were normal while I have no idea. Lactic acid was normal x2. I do not know why they were done. Lipase was normal. As mentioned before, the D-dimer was elevated at 1.16 in the region. The CT scan was done. Urine was clear. At the time of discharge, a followup H and H is being done. I will not hold his discharge for same. Job ID: [id number]
== END 2018-11-01 19:13 | disposition home or self-care (01) ==
LOC: ERS 09:39 → 2SW 16:30
PROVIDERS: ADMIT Emergency Medicine; ATTEND Emergency Medicine
DX: R53.1 Weakness (principal); R06.02 Shortness of breath; D61.818 Other pancytopenia; E11.9 Type 2 diabetes mellitus without complications; E87.1 Hypo-osmolality and hyponatremia; K40.90 Unilateral inguinal hernia, without obstruction or gangrene, not specified as recurrent
CPT/HCPCS: 36415; 36416; 36430; 71045; 71275; 74177; 80048; 80053; 81003; 83605; 83690; 83880; 84484; 85014; 85018; 85025; 85049; 85379; 85610; 85730; 86850; 86900; 86901; 93005; 96372; G0378; J1650; J3420; P9016; Q9966